=== PATIENT | female | born 1960 | race Caucasian/White ===

== ENCOUNTER 2016-09-19 21:03 | Emergency (ER) | payer OTHER ==
[~2016-09-19] VITALS: Ht 157.5 cm; Wt 58.5 kg
[2016-09-19 21:14] VITALS: Ht 157.5 cm; Wt 58.5 kg
--- NOTE | 2016-09-19 23:28 | ERA ---
ER Documentation Chief Complaint Date/Time DATE: 09/19/16 TIME: 23:27 Chief Complaint Epigastric abdominal discomfort HPI The patient is a 56-year-old female, presenting to the ER because of transient epigastric discomfort about 8 PM after she ate, lasted for a few minutes and went away by itself. She had recurrent epigastric abdominal discomfort around 9 PM lasted for about a minute and went away by itself. She was eating greasy and fatty pork. She has similar symptoms previously. She denies fever, chills , syncope, near syncope, neck pain, chest pain with exertion of vomiting or diaphoresis, nausea, vomiting, dysuria, diarrhea, constipation. She has heartburn for the last few days, is requesting sleeping pill. She does not smoke or drink Past medical history: Hypertension, insomnia Past surgical history: None ROS All systems reviewed and are negative except as per history of present illness. Medications Home Meds Active Scripts Zolpidem Tartrate* (Ambien*) 5 Mg Tablet, 5 MG PO HS Y for INSOMNIA, #15 TAB Prov:KRISTI SWEET MD 09/19/16 Pantoprazole* (Protonix*) 40 Mg Tablet.dr, 40 MG PO DAILY, #20 TAB Prov:KRISTI SWEET MD 09/19/16 Allergies Allergies: Coded Allergies: No Known Allergy (Unverified , 09/19/16) PMhx/Soc Medical and Surgical Hx: pt denies Surgical Hx Hx Cardiac Disorders: Yes (htn) Hx Alcohol Use: No Hx Substance Use: No Hx Tobacco Use: No Smoking Status: Never smoker Physical Exam Vitals Vital Signs Date Time Temp Pulse Resp B/P Pulse Ox O2 Delivery O2 Flow Rate FiO2 09/19/16 21:14 97.8 56 20 145/81 97 Physical Exam Const: No acute distress. Head: Atraumatic. Eyes: Normal Conjunctiva. ENT: Normal External Ears, Nose and Mouth. Neck: Full range of motion. No meningismus. Resp: Clear to auscultation bilaterally. Cardio: Regular rate and rhythm. Abd: Soft, non distended, normal bowel sounds, non tender. Skin: No petechiae or rashes. Back: No midline or flank tenderness. Ext: No cyanosis, or edema. Neur: Awake and alert. No focal deficit Psych: Normal Mood and Affect. Procedures/MDM EKG: At 2111 hrs. read by emergency physician Rate/Rhythm: Sinus bradycardia 59 beats/min QRS, ST, T-waves: No ST elevation, no T inversion Impression: Abnormal EKG EKG: At 2341 hrs. read by emergency physician Rate/Rhythm: Sinus bradycardia 56 beats/min QRS, ST, T-waves: No ST elevation, no T inversion, prolonged QT Impression: Abnormal EKG MEDICAL MAKING DECISION: The patient is a 56-year-old female, presenting with transient acute dyspepsia and chronic insomnia. He does not have any chest pain now, I do not suspect ACS The differential diagnoses considered include but are not limited to acute coronary syndrome, acute myocardial infarction, pericarditis, pulmonary embolism , aortic dissection, pneumonia, pleural effusion, pneumothorax, GERD, chest wall pain. Departure Diagnosis: Primary Impression: Dyspepsia Additional Impression: Insomnia Condition: Good Comments She was discharged with Ambien and Protonix I discussed the findings with the patient. I advised the patient to follow-up with the primary physician in about 1-2 days, sooner if needed and return if any concern. KRISTI SWEET MD Sep 19, 2016 23:28
[2016-09-19] MEDS ORDERED: ZOLP5TAB PO (23:39)
[2016-09-19] MEDS ORDERED: PANT40TA3 PO (23:39)
[2016-09-20 00:02] VITALS: BP 138/80; PULSE 68; RESP 18
== END 2016-09-20 00:03 | disposition home or self-care (01) ==
LOC: E/R 21:03
DX: R10.13 Epigastric pain (principal); G47.00 Insomnia, unspecified; I10 Essential (primary) hypertension

== ENCOUNTER 2018-08-17 21:57 | Emergency (ER) | payer SELFPAY ==
[~2018-08-17] VITALS: Ht 157.5 cm; Wt 56.8 kg
[~2018-08-17 21:57] MED LIST: PANT40TA3 PO; ZOLP5TAB PO
[2018-08-17 22:15] VITALS: Ht 157.5 cm; Wt 56.8 kg
[2018-08-17] MEDS ORDERED: ONDANSETRON 4 MG INJ IV STA (23:52)
[2018-08-18] MEDS ORDERED: LORAZEPAM 2 MG INJ IV ONE
[2018-08-18] MEDS ORDERED: LORA-441 PO (03:26)
--- NOTE | 2018-08-18 03:28 | ERD ---
ER Documentation Chief Complaint Chief Complaint WEAK/ DIZZY X'S 3 DAYS; HX OF VERTIGO HPI This is a very pleasant 58-year female that is felt weak and dizzy over the past 3 days. She said the dizziness feels more like feeling lightheaded. She states been under significant amount of stress over the past week. She has a history o f vertigo but says this feels different. Denies any focal neurologic complaints. Denies any dysarthria. Denies any facial droop. Denies any focal weakness. Denies any other current issues. ROS All systems reviewed and are negative except as per history of present illness. Medications Home Meds Active Scripts Lorazepam* (Ativan*) 0.5 Mg Tablet, 0.5 MG PO Q8H PRN for ANXIETY, #10 TAB Prov:JUAN CARLOS ALVA 08/18/18 Zolpidem Tartrate* (Ambien*) 5 Mg Tablet, 5 MG PO HS PRN for INSOMNIA, #15 TAB Prov:KRITSI SWEET MD 09/19/16 Pantoprazole* (Protonix*) 40 Mg Tablet.dr, 40 MG PO DAILY, #20 TAB Prov:KRISTI SWEET MD 09/19/16 Allergies Allergies: Coded Allergies: No Known Allergy (Unverified , 09/19/16) PMhx/Soc History of Surgery: Yes (D&C) Hx Cardiac Disorders: Yes (htn) Hx Miscellaneous Medical Probl: Yes (Insomnia, Vertigo, Blighted Ovum, Right eye cataract) Hx Alcohol Use: No Hx Substance Use: No Hx Tobacco Use: No Smoking Status: Never smoker Physical Exam Vitals Vital Signs Date Temp Pulse Resp B/P (MAP) Pulse Ox O2 O2 Flow FiO2 Time Delivery Rate 08/18/18 98.2 59 18 133/66 100 00:16 (88) 08/17/18 98.2 64 18 163/74 100 22:15 (103) Physical Exam Const: No acute distress Head: Atraumatic Eyes: Normal Conjunctiva ENT: Normal External Ears, Nose and Mouth. Neck: Full range of motion. No meningismus. Resp: Clear to auscultation bilaterally Cardio: Regular rate and rhythm, no murmurs Abd: Soft, non tender, non distended. Normal bowel sounds Skin: No petechiae or rashes Back: No midline or flank tenderness Ext: No cyanosis, or edema Neur: Awake and alert Psych: Normal Mood and Affect Result Diagram: 08/17/18 2357 08/17/187 Results 24 hrs Laboratory Tests Test 08/17/18 23:57 White Blood Count 8.3 10^3/ul Red Blood Count 4.43 10^6/ul Hemoglobin 13.6 g/dl Hematocrit 40.6 % Mean Corpuscular Volume 91.6 fl Mean Corpuscular Hemoglobin 30.7 pg Mean Corpuscular Hemoglobin Concent 33.5 g/dl Red Cell Distribution Width 12.6 % Platelet Count 275 10^3/UL Mean Platelet Volume 9.5 fl Immature Granulocytes % 0.400 % Neutrophils % 70.9 % Lymphocytes % 24.0 % Monocytes % 4.1 % Eosinophils % 0.2 % Basophils % 0.4 % Nucleated Red Blood Cells % 0.0 /100WBC Immature Granulocytes # 0.030 10^3/ul Neutrophils # 5.9 10^3/ul Lymphocytes # 2.0 10^3/ul Monocytes # 0.3 10^3/ul Eosinophils # 0.0 10^3/ul Basophils # 0.0 10^3/ul Nucleated Red Blood Cells # 0.0 10^3/ul Sodium Level 139 mmol/L Potassium Level 4.3 mmol/L Chloride Level 101 mmol/L Carbon Dioxide Level 27 mmol/L Anion Gap 11 Blood Urea Nitrogen 13 mg/dl Creatinine 0.71 mg/dl Est Glomerular Filtrat Rate mL/min > 60 mL/min Glucose Level 118 mg/dl Calcium Level 10.0 mg/dl Total Bilirubin 0.5 mg/dl Direct Bilirubin 0.00 mg/dl Indirect Bilirubin 0.5 mg/dl Aspartate Amino Transf (AST/SGOT) 25 IU/L Alanine Aminotransferase (ALT/SGPT) 26 IU/L Alkaline Phosphatase 88 IU/L Troponin I < 0.012 ng/ml B-Type Natriuretic Peptide 50 PG/ML Total Protein 8.0 g/dl Albumin 4.6 g/dl Globulin 3.40 g/dl Albumin/Globulin Ratio 1.35 Current Medications Medications Dose Sig/Marybeth Start Time Status Last (Trade) Ordered Route PRN Stop Time Admin Dose Reason Admin Lorazepam 1 mg ONCE ONCE 08/18/18 DC 08/18/18 (Ativan) IV 00:00 08/18/18 00:07 00:01 Ondansetron 4 mg ONCE STAT 08/17/18 DC 08/18/18 HCl (Zofran IV 23:52 08/17/18 00:07 Inj) 23:54 Procedures/MDM EKG: Rate/Rhythm: [Normal Sinus Rhythm] QRS, ST, T-waves: [No changes consistent w/ acute ischemia] Impression: [No evidence of ischemia or arrhythmia] Chest X-ray 1V Interpreted by me: Soft Tissue: No acute abnormalities Bones: No acute abnormalities Mediastinum/Cardiac Silhouette/Lungs: [No acute abnormalities] Medical decision making: Patient's neurologic symptoms have stabilized while they have been evaluated in the department and are appropriate for outpatient work up. No e/o meningitis, intracranial bleed, seizure, stroke. Symptomology seems to be anxiety related. Given Ativan here in the emergency department with great response. Completely symptom-free at time of discharge. Normal neurological function on serial neurological examinations here in the emergency department. Departure Diagnosis: Primary Impression: Acute weakness Condition: Stable Patient Instructions: Anxiety Reaction, Weakness, Unk Cause JUAN CARLOS ALVA August 18, 2018 03:28
[2018-08-18] MEDS ORDERED: LOSA50TA14 PO (04:16)
[2018-08-18] MEDS ORDERED: AMLO-145 PO (04:16)
[2018-08-18 04:23] VITALS: BP 110/70; PULSE 63; RESP 17
== END 2018-08-18 04:02 | disposition home or self-care (01) ==
LOC: E/R 21:57
DX: R53.1 Weakness (principal); I10 Essential (primary) hypertension
CPT/HCPCS: 36415; 70450; 71045; 80053; 83880; 84484; 85025; 93005; 96374; 96375; 99285; J2060; J2405